=== PATIENT | male | born 1975 | race African-American/Black ===

== ENCOUNTER 2021-04-08 09:38 | Inpatient (IN) | payer BC ==
[2021-04-08 11:00] LABS: BASO % 0.8 % (0-2.0); EOS % 3.1 % (0-4.5); HEMATOCRIT 46.7 % (35.4-49); HEMOGLOBIN 15.2 GM/dL (11.7-16.9); LYMPH % 21.8 % (8-40); MCH 30.3 pg (25.7-33.7); MCHC 32.5 g/dl (32.0-35.9); MEAN CELL VOLUME 93.3 fl (80-96); MEAN PLT VOLUME 8.8 fl (7.5-11.1); MONO % 6.6 % (3.8-10.2); NEUT % 67.7 % (42.8-82.8); PLATELET COUNT 201 10^3/uL (134-434); RBC 5.01 M/mm3 (4.00-5.60); RDW 14.7 % (11.9-15.9); WHITE BLOOD COUNT 6.3 K/mm3 (4.0-10.0)
[2021-04-08 11:06] LABS: INR 0.89 (0.83-1.09); PROTHROMBIN TIME (PATIENT) 10.2 SEC (9.7-13.0)
[2021-04-08 11:08] LABS: ACTIVATED PTT 29.1 SECONDS (25.2-36.5)
[2021-04-08 11:11] LABS: EPI CELLS 0 /uL (0-25.1); HYALINE CASTS 0 /uL (0-3.1); URINE APPEARANCE CLEAR; URINE BACTERIA 1 /uL (0-1359); URINE BILIRUBIN NEGATIVE (NEGATIVE); URINE COLOR YELLOW; URINE GLUCOSE (UA) NEGATIVE (NEGATIVE); URINE KETONE NEGATIVE (NEGATIVE); URINE LEUK ESTERASE NEGATIVE (NEGATIVE); URINE NITRITE NEGATIVE (NEGATIVE); URINE PROTEIN 1+ (NEGATIVE); URINE RBC 1 /uL (0-23.9); URINE UROBILINOGEN 0.2 mg/dL (0.2-1.0); URINE WBC 3 /uL (0-25.8)
[2021-04-08 11:26] LABS: CALCIUM 8.4 mg/dL (8.5-10.1)
[2021-04-08 11:27] LABS: ALBUMIN 3.8 g/dl (3.4-5.0)
[2021-04-08 11:28] LABS: BLOOD UREA NITROGEN 17.7 mg/dL (7-18)
[2021-04-08 11:30] LABS: CREATININE 1.3 mg/dL (0.55-1.3)
[2021-04-08 11:32] LABS: TOT PROT 7.4 g/dl (6.4-8.2)
[2021-04-08] MEDS ORDERED: amLODIPine BESYLATE 10 MG TABLET (FP) ONE (15:41)
[2021-04-08] MEDS ORDERED: ASPIRIN 81 MG CHEWABLE TABLETS ONE (15:41)
[2021-04-08] MEDS: ASPIRIN 81 MG CHEWABLE TABLETS PO SCH (15:47)
[2021-04-08] MEDS: amLODIPine BESYLATE 10 MG TABLET (FP) PO SCH (15:47)
[2021-04-08] MEDS ORDERED: ATORVASTATIN CA 20 MG TABLET (FP) PO SCH (22:00)
[2021-04-08 22:33] VITALS: BMI 37.4
[2021-04-09] MEDS: amLODIPine BESYLATE 10 MG TABLET (FP) PO SCH ×2 (05:36→10:35)
[2021-04-09] MEDS ORDERED: LABETALOL HCL 5 MG/1 ML (100MG/20 ML VIAL) IVPUSH ONE (08:01)
[2021-04-09] MEDS: ENOXAPARIN NA (PORCINE) 40 MG/0.4 ML DISP.SYRIN SQ SCH (10:35)
[2021-04-09] MEDS: ASPIRIN 81 MG CHEWABLE TABLETS PO SCH (10:35)
[2021-04-09] MEDS ORDERED: LISINOPRIL 10 MG TABLET PO ONE (12:49)
[2021-04-09] MEDS: ATORVASTATIN CA 80 MG TABLET (FP) PO SCH (21:41)
[2021-04-10 08:27] LABS: HEMATOCRIT 47.9 % (35.4-49); HEMOGLOBIN 15.7 GM/dL (11.7-16.9); MCH 30.5 pg (25.7-33.7); MCHC 32.9 g/dl (32.0-35.9); RBC 5.16 M/mm3 (4.00-5.60); RDW 14.4 % (11.9-15.9); WHITE BLOOD COUNT 5.7 K/mm3 (4.0-10.0)
[2021-04-10 08:28] LABS: MEAN PLT VOLUME 8.5 fl (7.5-11.1); PLATELET COUNT 192 10^3/uL (134-434)
[2021-04-10 08:43] LABS: BLOOD UREA NITROGEN 14.8 mg/dL (7-18); CALCIUM 8.7 mg/dL (8.5-10.1)
[2021-04-10 08:46] LABS: CREATININE 1.2 mg/dL (0.55-1.3)
[2021-04-10 09:19] LABS: ERYTHROCYTE SEDIMENTATION RATE 2 mm/hr (0-10)
[2021-04-10] MEDS: NIFEdipine E.R. 90 MG TABLET PO SCH (09:29)
[2021-04-10] MEDS: ASPIRIN 81 MG CHEWABLE TABLETS PO SCH (09:29)
[2021-04-10] MEDS: ENOXAPARIN NA (PORCINE) 40 MG/0.4 ML DISP.SYRIN SQ SCH (09:30)
[2021-04-10] MEDS ORDERED: NIFEdipine 10 MG CAPSULE (FP) PO SCH (10:00)
[2021-04-10] MEDS ORDERED: NIFEdipine E.R 60 MG TABLET PO SCH (10:00)
[2021-04-10] MEDS ORDERED: LOSARTAN POTASSIUM 50 MG TABLET PO SCH (11:00)
[2021-04-10] MEDS: ATORVASTATIN CA 80 MG TABLET (FP) PO SCH (21:22)
[2021-04-11] MEDS: ASPIRIN 81 MG CHEWABLE TABLETS PO SCH (09:04)
[2021-04-11] MEDS: ENOXAPARIN NA (PORCINE) 40 MG/0.4 ML DISP.SYRIN SQ SCH (09:04)
[2021-04-11] MEDS: NIFEdipine E.R. 90 MG TABLET PO SCH (09:04)
[2021-04-11 09:15] VITALS: TEMP 97.9
[2021-04-11] MEDS ORDERED: LOSARTAN 50MG/HCTZ 12.5MG 1 TAB PO SCH (10:00)
[2021-04-11 15:17] VITALS: BP 142/96; PULSE 70
== END 2021-04-11 17:03 | disposition home health service (06) | DRG 66 ==
LOC: JER 09:38 → JERBED 13:07 → J4W 20:54
PROVIDERS: ADMIT Internal Medicine; ATTEND Internal Medicine
DX: I63.89 Other cerebral infarction (principal); I10 Essential (primary) hypertension; R29.700 NIHSS score 0; E78.5 Hyperlipidemia, unspecified; R55 Syncope and collapse; R47.81 Slurred speech; R94.31 Abnormal electrocardiogram [ECG] [EKG]; D18.09 Hemangioma of other sites; G47.33 Obstructive sleep apnea (adult) (pediatric)
CPT/HCPCS: 36415; 70450-TC; 70544-TC; 70551-TC; 71045-TC-FY; 71275-TC; 74174-TC; 80048; 80053; 80061; 81003; 82550; 82553; 82607; 82962; 83036; 84484; 85025; 85027; 85610; 85651; 85730; 86900; 93005; 93010; 93306-TC; 93308; 93880-TC; 95816; 97116-GP; 97161-GP; 99285-25; C9803; U0003; U0005